=== PATIENT | female | born 1940 | race Caucasian/White ===

== ENCOUNTER 2022-07-12 21:34 | Emergency (ER) | payer OTHER ==
[~2022-07-12] VITALS: Ht 154.9 cm; Wt 59.0 kg
[2022-07-12 21:35] VITALS: BP_SYST 142
--- NOTE | 2022-07-12 22:14 | NUR ---
NIRAJ Ware at bedside examining patient.
[2022-07-12 22:18] LABS: BACTERIA,URINE FEW /HPF (None Seen); MUCUS,URINE 1+ /LPF (None Seen); RBC,URINE 20-50 /HPF (0-3); WBC,URINE 50-80 /HPF (0-3)
--- NOTE | 2022-07-12 22:25 | NUR ---
TAKEN TO RADIOLOGY VIA WHEELCHAIR
[2022-07-12] MEDS ORDERED: ONDANSETRON HCL 4 MG/2 ML VIAL IVP ONE (22:30)
[2022-07-12] MEDS ORDERED: ACETAMINOPHEN 500 MG TABLET PO ONE (22:30)
[2022-07-12] MEDS ORDERED: KETOROLAC TROMETHAMINE 30 MG VIAL IVP ONE (22:30)
[2022-07-12] MEDS ORDERED: cefTRIAXone 1 GM IVPB PREMIX 50 ML IV ONE (22:30)
[2022-07-12 23:02] LABS: EOSINOPHILS # (AUTO) 0.1 K/uL (0.0-0.4); LYMPHOCYTES # (AUTO) 1.4 K/uL (1.0-5.5)
[2022-07-12 23:22] LABS: INR 1.2 (0.8-1.2); PROTHROMBIN TIME 12.1 SECS (9.5-12.5)
[2022-07-12 23:26] LABS: ANION GAP 6 (5-15); CALCIUM 8.9 mg/dL (8.4-11.0); CHLORIDE 107 mmol/L (98-107); CREATININE 0.65 mg/dL (0.55-1.30); GLUCOSE 107 mg/dL (70-99); UREA NITROGEN, BLOOD 24 mg/dL (8-21)
[2022-07-12 23:27] LABS: BASOPHILS # (AUTO) 0.2 K/uL (0.0-0.2); BASOPHILS % (AUTO) 1.8 % (0.0-2.0); HEMOGLOBIN 13.5 g/dL (12.0-16.0); LYMPHOCYTES % (AUTO) 16.2 % (20.5-51.5); MEAN CORPUSCULAR HEMOGLOBIN 30 pg (27-31); MEAN CORPUSCULAR HGB CONC 34 % (32-36); MEAN CORPUSCULAR VOLUME 87 fL (79.0-98.0); MONOCYTES # (AUTO) 0.9 K/uL (0.0-1.0); MONOCYTES % (AUTO) 10.7 % (1.7-9.3); NEUTROPHILS % (AUTO) 70.3 % (40.0-70.0); PLATELET COUNT (AUTO) 148 K/uL (130-430); RED BLOOD CELL COUNT(AUTO) 4.58 MIL/uL (4.2-6.2); RED CELL DISTRIBUTION WIDTH 13.9 % (9.0-15.0); WHITE BLOOD COUNT (AUTO) 8.5 K/uL (4.8-10.8)
[2022-07-12 23:39] LABS: ALANINE AMINOTRANSFERASE 25 U/L (12-78); ASPARTATE AMINOTRANSFERASE 17 U/L (10-37)
[2022-07-13] MEDS ORDERED: ONDA-8 TL (01:59)
[2022-07-13] MEDS ORDERED: PHEN-890 PO ×2 (01:59)
[2022-07-13] MEDS ORDERED: CEFI200T PO (01:59)
[2022-07-13] MEDS ORDERED: PHEN-726 PO (01:59)
[2022-07-13] MEDS ORDERED: TRAM50TA2 PO (02:00)
[2022-07-13 02:26] VITALS: BP_SYST 134
--- NOTE | 2022-07-13 02:27 | NUR ---
Patient given written and verbal discharge instructions and verbalizes understanding. ER MD discussed with patient the results and treatment provided. Patient in stable condition. ID arm band removed. IV catheter removed intact and dressing applied, no active bleeding. Rx of SUPRAX,ZOFRAN,PYRIDIUM given. Patient educated on pain management and to follow up with PMD. Pain Scale . Opportunity for questions provided and answered. Medication side effect fact sheet provided.
== END 2022-07-13 02:25 | disposition home or self-care (01) ==
LOC: SED 21:34
DX: N12 Tubulo-interstitial nephritis, not specified as acute or chronic (principal); N30.00 Acute cystitis without hematuria; R35.0 Frequency of micturition; M54.50 Low back pain, unspecified; R11.0 Nausea; Z88.1 Allergy status to other antibiotic agents; Z88.5 Allergy status to narcotic agent; Z88.6 Allergy status to analgesic agent; Z79.899 Other long term (current) drug therapy
CPT/HCPCS: 99285; 74176; 96365; 71045; 96375; 80053; 81000; 85025; 85610; 85730; 87040; 87086; 84484; 36415; 93005; 76376; 83605; J0696; J1885; J2405

== ENCOUNTER 2022-09-02 10:38 | Emergency (ER) | payer OTHER ==
[~2022-09-02] VITALS: Ht 157.5 cm; Wt 68.0 kg
[~2022-09-02 10:38] MED LIST: CEFI200T PO; ONDA-8 TL; PHEN-726 PO; TRAM50TA2 PO
[2022-09-02 10:48] VITALS: BP_SYST 131
[2022-09-02] MEDS ORDERED: TETRACAINE HCL/PF 0.5% OPHTHALMIC DROPS 4 ML OP ONE (11:45)
[2022-09-02] MEDS ORDERED: ACET-2634 PO (13:18)
[2022-09-02 13:35] VITALS: BP_SYST 131
== END 2022-09-02 13:34 | disposition home or self-care (01) ==
LOC: SED 10:38
DX: H11.32 Conjunctival hemorrhage, left eye (principal); R51.9 Headache, unspecified; Z88.1 Allergy status to other antibiotic agents; Z88.5 Allergy status to narcotic agent; Z88.6 Allergy status to analgesic agent; Z79.899 Other long term (current) drug therapy
CPT/HCPCS: 70450-TC; 76376; 93005; 99284